=== PATIENT | male | born 1955 | race Caucasian/White ===

== ENCOUNTER → 2017-10-25 | Outpatient (CLI) | payer BC ==
[2017-10-25 09:22] LABS: Anion Gap 11 mmol/L; Blood Urea Nitrogen 16 mg/dL (9-20); Calcium 9.8 mg/dL (8.4-10.2); Carbon Dioxide 27 mmol/L (22-30); Chloride 108 mmol/L (98-107); Cholesterol 202 mg/dL (<200); Glucose 119 mg/dL (74-99); HDL Cholesterol 57 mg/dL (40-60); LDL Cholesterol,Calculated 109 mg/dL (0-99); Potassium 4.6 mmol/L (3.5-5.1); Sodium 146 mmol/L (137-145); Triglycerides 178 mg/dL (<150)
[2017-10-25 09:37] LABS: T4, Free (Free Thyroxine) 0.73 ng/dL (0.78-2.19)
== END ==
LOC: LABWHC1 08:42
PROVIDERS: ATTEND Internal Medicine
DX: E78.5 Hyperlipidemia, unspecified (principal); E03.9 Hypothyroidism, unspecified; E87.8 Other disorders of electrolyte and fluid balance, not elsewhere classified
CPT/HCPCS: 36415; 80048; 80061; 84439; 84443

== ENCOUNTER 2019-02-05 22:18 | Observation (INO) | payer BC, MEDICARE ==
[2019-02-05 22:44] LABS: Glucose,Whole Blood 172 mg/dL (75-99)
[2019-02-05] MEDS ORDERED: SODIUM CHLORIDE 0.9% 500 ML 500 ML IV STA (22:49)
--- NOTE | 2019-02-05 22:58 | ED ---
General Adult HPI - General Chief complaint: Dizziness Stated complaint: Dizziness,vomiting Time Seen by Provider: 02/05/19 22:32 Source: patient, family, RN notes reviewed Mode of arrival: wheelchair Limitations: no limitations - History of Present Illness Initial comments: Chief complaint and history of present illness this is a 63-year-old male was c [facility] emergency room because of severe dizziness. reports she didn't eat or drink much today. He'll increase his physical activity. He went downstairs to watch TV and when he stood up reported became so severely dizzy almost passed out. Report he was breathing heavily reports that his skin color changed, was very diaphoretic. Patient denied headache or chest pain or palpitations. H e was nauseated and vomited. This all occurred the past hour. Though he is feeling better reports his color is still poor she reported taking his blood pressure at home and was 120/68 and this was repeated twice. She's not sure if she did right orbital monitor was correct. - Related Data Home Medications Medication Instructions Recorded Confirmed Magnesium(Unknown Dose) 1 tab PO HS 05/09/15 02/05/19 Melatonin(Unknowndose) 1 tab PO HS 05/09/15 02/05/19 Multivitamin [Men's Multi-Vitamin] 1 tab PO HS 05/09/15 02/05/19 Pravastatin Sodium [Pravachol] 80 mg PO HS 05/09/15 02/05/19 Ketoprofen 12.5mg 1 cap PO DAILY PRN 02/05/19 02/05/19 Levothyroxine Sodium [Synthroid] 88 mcg PO DAILY 02/05/19 02/05/19 Ubidecarenone [Co Q-10] 100 mg PO HS 02/05/19 02/05/19 Allergies Allergy/AdvReac Type Severity Reaction Status Date / Time No Known Allergies Allergy Verified 02/05/19 23:02 Review of Systems ROS Statement: Those systems with pertinent positive or pertinent negative responses have been documented in the HPI. Review of systems; patient denies any headache he reports he did lose his vision for short while felt as though he was going to pass out but he did not fall. [place] very dizzy at the time. Is a little ambulate with assistance of his . Vital signs find temperature 97.4 pulse 79 respiratory rate 18 pulse ox 95% room air blood pressure 138/82 all systems are reviewed. Past medical problems significant for hyperlipidemia, liver disease, probably A per . Varicose veins. Surgeries include tonsillectomy and a colonoscopy for polyps. Family history noncontributory. Patient nonsmoker nondrinker. Denies ALLERGIES. ROS Other: All systems not noted in ROS Statement are negative. Past Medical History Past Medical History: Hyperlipidemia, Liver Disease, Thyroid Disorder Additional Past Medical History / Comment(s): Hepatitis, not sure what type. V aricose veins. History of Any Multi-Drug Resistant Organisms: None Reported Past Surgical History: Tonsillectomy Additional Past Surgical History / Comment(s): Colonoscopy for polyps and R arm hematoma, Past Anesthesia/Blood Transfusion Reactions: No Reported Reaction Past Psychological History: No Psychological Hx Reported Smoking Status: Never smoker Past Alcohol Use History: None Reported Past Drug Use History: None Reported - Past Family History Mother Family Medical History: No Reported History General Exam - General Exam Comments Initial Comments: General: The patient is awake, complains of feeling tired and weak, this came on acutely the past hour. Very dizzy initially, diaphoretic per . Nauseated and vomited once. Denying headache, no chest pain, no palpitations. Eye: Pupils are equal, round and reactive to light, extra-ocular movements are intact; there is normal conjunctiva bilaterally. No signs of icterus. Ears, nose, mouth and throat: There are moist mucous membranes and no oral lesions. Neck: The neck is supple, there is no tenderness, no carotid bruit. Cardiovascular: There is a regular rate and rhythm. No murmur, rub or gallop is appreciated. Respiratory: Lungs are clear to auscultation, respirations are non-labored, breath sounds are equal. No wheezes, stridor, rales, or rhonchi. Gastrointestinal: Soft, non-distended, non-tender abdomen without masses or organomegaly noted. There is no rebound or guarding present. No CVA tenderness. Bowel sounds are unremarkable. Patient was nauseated and vomited once prior to coming emergency room. Back: Denies back pain Musculoskeletal: Normal ROM, no tenderness, There is no pedal edema. There is no calf tenderness or swelling. Sensation intact. Neurological: CN II-XII intact, There are no obvious motor or sensory deficits. Coordination appears grossly intact. Speech is normal. No focal or lateralizing findings. Patient complains of being family dizzy at the time. Acute onset of weakness and near syncope. Skin: reports he still appears pale as compared to his normal color. Psychiatric: Cooperative, Limitations: no limitations Course Vital Signs 02/05/19 02/05/19 22:24 23:29 Temperature 97.4 F L Pulse Rate 79 Pulse Rate [ 77 Left Sitting] Pulse Rate [ 86 Left Standing] Pulse Rate [ 74 Left Supine] Respiratory 18 18 Rate Blood Pressure 138/82 Blood Pressure 128/90 [Left Arm Sitting] Blood Pressure 133/90 [Left Arm Standing] Blood Pressure 122/76 [Left Arm Supine] O2 Sat by Pulse 95 96 Oximetry EKG Findings - EKG Comments: EKG Findings:: EKG was done and reviewed at 2239 showing normal sinus rhythm with right bundle branch block ventricular rate 74 IA interval is 198 QRS 162 QT [address] Garcia Medical Decision Making - Medical Decision Making Rectal decision making; this is a 63-year-old male here with family. The patient had a dizzy episode one going from sitting to standing position. He felt as though he almost was going to black out. reports that he was ashen in color and diaphoretic. Patient was nauseated and vomited once. Not complaining of any chest pain palpitations or headache. Labs show white count of 9 hemoglobin 14 hematocrit of 43 with a potassium 3.8. BUN 20 creatinine 1.02 with a GFR 77. Glucose is 166. Troponin 0.0-8 CT of the brain was performed reviewed by radiologist his final impression is no evidence of acute intracranial abnormality. Multiple small gas lucencies in the neck soft tissues bilaterally which are nonspecific and may be related to venous reflux of air during IV access. Clinical correlation is recommended. Dr. Arguello Examination of the neck does not show any evidence clinically of any subcu case emphysema. Auscultation does not elicit any evidence of subcu emphysema. Interesting to note the patient did vomit 5 times just prior to coming emergency room. Awaiting interpretation of the chest x-ray. Radiologist report and impression; no evidence of acute cardiopulmonary disease as read by Dr. Arguello. The patient will be admitted for near syncopal episode. His orthostatics are within normal limits. Patient complains of being mildly dizzy. He'll be given Antivert while in hospital. Case was discussed with the patient's attending. Plans for the patient to be admitted for observation for the evening with repeat troponin levels performed. Patient never had chest pain but he was dizzy, diaphoretic. We did discuss possibility of cardiac arrhythmia causing his symptoms as well. All questions w ere answered - Lab Data Result diagrams: 02/05/19 22:47 02/05/19 22:47 Lab Results 02/05/19 02/05/19 02/05/19 Range/Units 22:43 22:47 22:47 WBC 9.1 (3.8-10.6) k/uL RBC 4.61 (4.30-5.90) m/uL Hgb 14.4 (13.0-17.5) gm/dL Hct 43.1 (39.0-53.0) % MCV 93.6 (80.0-100.0) fL MCH 31.2 (25.0-35.0) pg MCHC 33.3 (31.0-37.0) g/dL RDW 12.8 (11.5-15.5) % Plt Count 209 (150-450) k/uL Neutrophils % 64 % Lymphocytes % 29 % Monocytes % 5 % Eosinophils % 1 % Basophils % 1 % Neutrophils # 5.8 (1.3-7.7) k/uL Lymphocytes # 2.6 (1.0-4.8) k/uL Monocytes # 0.4 (0-1.0) k/uL Eosinophils # 0.1 (0-0.7) k/uL Basophils # 0.1 (0-0.2) k/uL PT (9.0-12.0) sec INR (<1.2) Sodium 141 (137-145) mmol/L Potassium 3.8 (3.5-5.1) mmol/L Chloride 105 (98-107) mmol/L Carbon Dioxide 24 (22-30) mmol/L Anion Gap 12 mmol/L BUN 20 (9-20) mg/dL Creatinine 1.02 (0.66-1.25) mg/dL Est GFR (CKD-EPI)AfAm 89 (>60 ml/min/1.73 sqM) Est GFR (CKD-EPI)NonAf 77 (>60 ml/min/1.73 sqM) Glucose 166 H (74-99) mg/dL POC Glucose (mg/dL) 172 H (75-99) mg/dL POC Glu Assurance Senior Manager ID Janet Santana Plasma Lactic Acid Sherman (0.7-2.0) mmol/L Calcium 9.7 (8.4-10.2) mg/dL Total Bilirubin 0.6 (0.2-1.3) mg/dL AST 55 (17-59) U/L ALT 43 (21-72) U/L Alkaline Phosphatase 75 (38-126) U/L Troponin I (0.000-0.034) ng/mL Total Protein 7.2 (6.3-8.2) g/dL Albumin 4.5 (3.5-5.0) g/dL 02/05/19 02/05/19 02/05/19 Range/Units 22:47 22:47 22:47 WBC (3.8-10.6) k/uL RBC (4.30-5.90) m/uL Hgb (13.0-17.5) gm/dL Hct (39.0-53.0) % MCV (80.0-100.0) fL MCH (25.0-35.0) pg MCHC (31.0-37.0) g/dL RDW (11.5-15.5) % Plt Count (150-450) k/uL Neutrophils % % Lymphocytes % % Monocytes % % Eosinophils % % Basophils % % Neutrophils # (1.3-7.7) k/uL Lymphocytes # (1.0-4.8) k/uL Monocytes # (0-1.0) k/uL Eosinophils # (0-0.7) k/uL Basophils # (0-0.2) k/uL PT 10.5 (9.0-12.0) sec INR 1.0 (<1.2) Sodium (137-145) mmol/L Potassium (3.5-5.1) mmol/L Chloride (98-107) mmol/L Carbon Dioxide (22-30) mmol/L Anion Gap mmol/L BUN (9-20) mg/dL Creatinine (0.66-1.25) mg/dL Est GFR (CKD-EPI)AfAm (>60 ml/min/1.73 sqM) Est GFR (CKD-EPI)NonAf (>60 ml/min/1.73 sqM) Glucose (74-99) mg/dL POC Glucose (mg/dL) (75-99) mg/dL POC Glu Assurance Senior Manager ID Plasma Lactic Acid Sherman 1.4 (0.7-2.0) mmol/L Calcium (8.4-10.2) mg/dL Total Bilirubin (0.2-1.3) mg/dL AST (17-59) U/L ALT (21-72) U/L Alkaline Phosphatase (38-126) U/L Troponin I 0.028 (0.000-0.034) ng/mL Total Protein (6.3-8.2) g/dL Albumin (3.5-5.0) g/dL Disposition Clinical Impression: Postural dizziness with near syncope Disposition: ADMITTED IP TO THIS HOSP Condition: Fair Referrals: Yasmany Muniz MD [Primary Care Provider] - 1-2 days
[2019-02-05 23:25] LABS: Basophils # (A) 0.1 k/uL (0-0.2); Basophils % (A) 1 %; Eosinophils # (A) 0.1 k/uL (0-0.7); Eosinophils % (A) 1 %; HCT 43.1 % (39.0-53.0); HGB 14.4 gm/dL (13.0-17.5); Lymphocytes # (A) 2.6 k/uL (1.0-4.8); Lymphocytes % (A) 29 %; MCH 31.2 pg (25.0-35.0); MCHC 33.3 g/dL (31.0-37.0); MCV 93.6 fL (80.0-100.0); Monocytes # (A) 0.4 k/uL (0-1.0); Monocytes % (A) 5 %; Neutrophils # (A) 5.8 k/uL (1.3-7.7); Neutrophils % (A) 64 %; Platelet Count 209 k/uL (150-450); RBC 4.61 m/uL (4.30-5.90); RDW 12.8 % (11.5-15.5); WBC 9.1 k/uL (3.8-10.6)
[2019-02-05 23:45] LABS: Albumin 4.5 g/dL (3.5-5.0); Calcium 9.7 mg/dL (8.4-10.2); Potassium 3.8 mmol/L (3.5-5.1); Total Bilirubin 0.6 mg/dL (0.2-1.3); Total Protein 7.2 g/dL (6.3-8.2)
[2019-02-05 23:50] LABS: Prothrombin Time 10.5 sec (9.0-12.0)
--- NOTE | 2019-02-06 00:02 | CT ---
EXAM: CT Head Without Intravenous Contrast CLINICAL HISTORY: ITS.REASON CT Reason: Acute severe dizziness TECHNIQUE: Axial computed tomography images of the head/brain without intravenous contrast. CTDI is 49.3 mGy and DLP is 1091.4 mGy-cm. This CT exam was performed using one or more of the following dose reduction techniques: automated exposure control, adjustment of the mA and/or kV according to patient size, and/or use of iterative reconstruction technique. COMPARISON: None available FINDINGS: Brain: No evidence of acute transcortical cerebral infarction or intracranial hemorrhage. No abnormal mass effect or midline shift. No abnormal extra-axial collections. Mild cerebral atrophy. Ventricles: Ventricles are unremarkable. Bones/joints: No skull fracture identified. Soft tissues: Multiple small gas lucencies in the neck soft tissues bilaterally. Sinuses: Imaged paranasal sinuses are clear except for small left sphenoid mucous retention cyst. Mastoid air cells: Mastoid sinuses are clear. IMPRESSION: No evidence of acute intracranial abnormality. Multiple small gas lucencies in the neck soft tissues bilaterally which are nonspecific and may be related to venous reflux of air during IV access. Clinical correlation is recommended. <MYCVCSECTION> Critical Value Communications 02/06/19 00:09 Verify Receipt Verified receipt with BRITT Ovalle in ER for IRIS Monet on 02/06 00:09 (-04:00)
--- NOTE | 2019-02-06 00:23 | XR ---
EXAM: XR Chest, 2 Views CLINICAL HISTORY: ITS.REASON XR Reason: Short of breath TECHNIQUE: Frontal and lateral views of the chest. COMPARISON: Chest x-ray 09/28/2015 FINDINGS: Lungs: No focal pulmonary infiltrates or consolidations. Mild basilar subsegmental atelectasis. Pleural space: No evidence of pleural effusion or pneumothorax. Heart: Heart size upper limits of normal. Mediastinum: Mediastinal structures are unremarkable. Bones/joints: Mild degenerative changes involve mid and lower thoracic spine. IMPRESSION: No evidence of acute cardiopulmonary disease.
[2019-02-06] MEDS ORDERED: MECLIZINE 12.5 MG TAB PO STA (00:44)
[2019-02-06] MEDS ORDERED: NALOXONE 0.4 MG/ML 1 ML VIAL IV PRN (00:51)
[2019-02-06] MEDS ORDERED: IBUPROFEN 400 MG TAB PO PRN (00:51)
[2019-02-06] MEDS ORDERED: SODIUM CHLORIDE 0.9% 1,000 ML IV SCH (01:00)
[2019-02-06] MEDS ORDERED: LEVOTHYROXINE 88 MCG TAB PO SCH (06:30)
[2019-02-06 07:33] VITALS: RESP 16; TEMP 97.7
[2019-02-06] MEDS ORDERED: FAMOTIDINE 20 MG TAB PO SCH (09:00)
[2019-02-06 09:12] VITALS: PULSE 68
[2019-02-06 10:14] VITALS: BP 116/74
--- NOTE | 2019-02-06 10:37 | P.HPIM ---
History of Present Illness Chief complaint Weakness and syncope History of present illness The patient is a 63-year-old gentleman who had been working extremely hard yesterday throughout the day without drinking much or eating much fluids. He became tired but did get some pizza and was sitting in his basement when he suddenly got up and felt very weak. He had a hard time walking. He almost passed out and became very lightheaded. No definite vertigo. He was very nauseated. He denied any headaches or focal weakness. No His gave him something to drink that also had some sugars. The patient became very nauseated and was brought to the emergency room by his . Past medical history Hyperlipidemia Hypothyroidism Colonic polyps Overweight Right wrist tendinitis History of venous insufficiency and varicose veins. Some history of hepatitis in the past but unsure type. Occurred many years ago. No known ALLERGIES Home medications Coenzyme Q 10, 100 mg at at bedtime Pravachol 80 mg at at bedtime Multiple vitamin daily Melatonin 3 mg at night for sleep Magnesium 1 at at bedtime Levothyroxine 88 g daily Ketoprofen 12.5 daily when necessary for musculoskeletal pain. Previous surgeries include a tonsillectomy. Review of systems No history of headache or double vision but he did experience some blurred vision initially. No fever or chills or cough. Patient did have profuse sweating during the episode initially. Patient did not have any chest pain or abdominal pain but did have nausea and vomiting at the emergency room. No urinary or bowel symptomatology. Social history Patient is a retired teacher. He lives locally in the area with his . No history of excessive alcohol usage. He is a former smoker. Family history Positive for heart disease and diabetes. Vital signs presently show a temperature 97.7 with a pulse of 68 respirations 16. Blood pressure 119/78 and he is 97% saturated on room air. He is alert and oriented. Pleasant. Head and neck is atraumatic. He does have a dark keratosis on the forehead. Extraocular movements are intact. Neck is not stiff. No carotid bruits. No thyromegaly. Lungs are clear to auscultation. Heart tones are regular without murmurs. Abdomen is soft and nontender without rebound, guarding or masses detected. Rectal and genital exam deferred. No unusual edema. No neurological deficits. Cranial nerves are intact. No focal weakness. He is alert and oriented. There is no hand drifting. He has been up ambulatory without difficulties. Laboratory White count is 9.1 with a hemoglobin 14.4 and a platelet count of 209. INR was 1.0 Electrolytes were normal. BUN of 20 with creatinine 1.02 given him a GFR of 77 Blood sugar 166 Lactic acid 1.4 Her calcium was normal. Albumin 4.5. Liver function tests unremarkable. Initial troponin was 0.028 and second repeat value of 0.022 EKG showed a normal sinus rhythm with a right bundle aarti block picture but no acute ischemic changes. Chest x-ray showed no evidence of acute cardiopulmonary disease. Brain CAT scan showed no evidence of acute intracranial abnormality. Impressions 1. Patient with syncopal type episode associated with postural hypotension initially and likely aggravated by initial hypoglycemia and vasovagal response with nausea and vomiting. No evidence for cardiac ischemic disease at this time or cardiac arrhythmia. 2. Past medical history as stated above with treated hyperlipidemia and hypoth yroidism 3. History of colonic polyps 4. Venous insufficiency and varicose veins 5. Right wrist tendinitis Plans Patient has been monitored. Repeat troponins. IV fluids. Further recommendations pending clinical response and results of above. Past Medical History Past Medical History: Hyperlipidemia, Liver Disease, Thyroid Disorder Additional Past Medical History / Comment(s): Hepatitis, not sure what type. Varicose veins. History of Any Multi-Drug Resistant Organisms: None Reported Past Surgical History: Tonsillectomy Additional Past Surgical History / Comment(s): Colonoscopy for polyps and R arm hematoma, Past Anesthesia/Blood Transfusion Reactions: No Reported Reaction Smoking Status: Never smoker - Past Family History Father Family Medical History: Dementia Additional Family Medical History / Comment(s): Heart Disease, Triple Bypass Mother Family Medical History: Diabetes Mellitus Medications and Allergies Home Medications Medication Instructions Recorded Confirmed Type Magnesium(Unknown Dose) 1 tab PO HS 05/09/15 02/06/19 History Melatonin(Unknowndose) 3 tab PO HS 05/09/15 02/06/19 History Multivitamin [Men's Multi-Vitamin] 1 tab PO HS 05/09/15 02/06/19 History Pravastatin Sodium [Pravachol] 80 mg PO HS 05/09/15 02/06/19 History Ketoprofen 12.5mg 1 cap PO DAILY PRN 02/05/19 02/06/19 History Levothyroxine Sodium [Synthroid] 88 mcg PO DAILY 02/05/19 02/06/19 History Ubidecarenone [Co Q-10] 100 mg PO HS 02/05/19 02/06/19 History Allergies Allergy/AdvReac Type Severity Reaction Status Date / Time No Known Allergies Allergy Verified 02/06/19 01:48 Physical Exam Vitals: Vital Signs Temp Pulse Pulse Pulse Pulse Pulse Resp 02/06/19 08:00 68 16 02/06/19 07:32 97.7 F 59 L 16 02/06/19 03:32 18 02/06/19 02:20 18 02/06/19 02:00 97.4 F L 73 18 02/06/19 01:36 97.5 F L 74 18 02/05/19 23:29 77 86 74 18 02/05/19 22:24 97.4 F L 79 18 BP BP BP BP BP Pulse Ox 02/06/19 08:00 119/78 130/78 116/74 97 02/06/19 07:32 113/73 97 02/06/19 03:32 02/06/19 02:20 02/06/19 02:00 115/74 96 02/06/19 01:36 117/77 93 L 02/05/19 23:29 128/90 133/90 122/76 96 02/05/19 22:24 138/82 95 Intake and Output 02/05/19 02/06/19 02/06/19 22:59 06:59 14:59 Other: Voiding Method Toilet # Voids 1 Weight 89.811 kg Results CBC & Chem 7: 02/05/19 22:47 02/05/19 22:47 Labs: Abnormal Lab Results - Last 24 Hours (Table) 02/05/19 02/05/19 Range/Units 22:43 22:47 Glucose 166 H (74-99) mg/dL POC Glucose (mg/dL) 172 H (75-99) mg/dL Thrombosis Risk Factor Assmnt - Choose All That Apply Each Risk Factor Represents 2 Points: Age 61-74 years Thrombosis Risk Factor Assessment Total Risk Factor Score: 2 Thrombosis Risk Factor Assessment Level: Low Risk
--- NOTE | 2019-02-06 10:42 | P.DS ---
Providers Date of admission: 02/06/19 00:55 Attending physician: Yasmany Muniz Primary care physician: Yasmany Muniz The patient is a 63-year-old gentleman who presented with a syncopal type episode. Please refer to history and physical. Patient did not have any chest pain associated with this. No focal neurological symptoms. The patient was monitored and hydrated. Repeat troponin values were evaluated and were unremarkable. Patient has been able to ambulate and will take nourishment prior to discharge today. Vital signs are good. Lung and heart examination is clear and regular. No neurological deficits. Anticipate discharge this morning. He will continue his home medications that include Pravachol 80 mg daily Levothyroxine 88 g daily Ketoprofen 12.5 daily as needed for musculoskeletal pain Patient also takes coenzyme Q at bedtime, multiple vitamin, magnesium and may continue those. Patient was instructed not to work too hard with out rest. and without taking fluids and nourishment throughout the day. He will follow-up in the office next week. He may call or return to emergency room for any acute development. Discharge diagnoses Syncopal episode related to hypoglycemia and postural hypotension. Also associated with vasovagal response with nausea and vomiting likely. Past medical history of hypothyroidism and hyperlipidemia. Acute right wrist tendinitis for which she is using a brace Colonic polyps Venous insufficiency and varicose veins Apparent remote history of hepatitis Patient Condition at Discharge: Fair Plan - Discharge Summary New Discharge Prescriptions: No Action Pravastatin Sodium [Pravachol] 80 mg PO HS Multivitamin [Men's Multi-Vitamin] 1 tab PO HS Melatonin(Unknowndose) 3 tab PO HS Magnesium(Unknown Dose) 1 tab PO HS Ubidecarenone [Co Q-10] 100 mg PO HS Levothyroxine Sodium [Synthroid] 88 mcg PO DAILY Ketoprofen 12.5mg 1 cap PO DAILY PRN PRN Reason: Pain Discharge Medication List Magnesium(Unknown Dose) 1 tab PO HS 05/09/15 [History] Melatonin(Unknowndose) 3 tab PO HS 05/09/15 [History] Multivitamin [Men's Multi-Vitamin] 1 tab PO HS 05/09/15 [History] Pravastatin Sodium [Pravachol] 80 mg PO HS 05/09/15 [History] Ketoprofen 12.5mg 1 cap PO DAILY PRN 02/05/19 [History] Levothyroxine Sodium [Synthroid] 88 mcg PO DAILY 02/05/19 [History] Ubidecarenone [Co Q-10] 100 mg PO HS 02/05/19 [History] Follow up Appointment(s)/Referral(s): Yasmany Muniz MD [Primary Care Provider] - 1-2 days (office is closed,please call for followup appointment) Patient Instructions/Handouts: Heat Exhaustion (ED), Syncope (DC), Hypotension (ED), Lightheadedness (ED) Activity/Diet/Wound Care/Special Instructions: rest and take it easy until seen by Dr. Muniz encourage fluids and food intake
[2019-02-06] MEDS ORDERED: PRAVASTATIN SODIUM 80 MG TAB PO SCH (21:00)
== END 2019-02-06 12:08 | disposition home or self-care (01) ==
LOC: EC 22:18 → 1SOBS 02-06 00:55
PROVIDERS: ADMIT Internal Medicine; ATTEND Internal Medicine
DX: I95.1 Orthostatic hypotension (principal); E16.2 Hypoglycemia, unspecified; E78.5 Hyperlipidemia, unspecified; I83.90 Asymptomatic varicose veins of unspecified lower extremity; K75.9 Inflammatory liver disease, unspecified; R53.1 Weakness; E03.9 Hypothyroidism, unspecified; M77.9 Enthesopathy, unspecified; I87.2 Venous insufficiency (chronic) (peripheral); E66.3 Overweight; Z68.32 Body mass index [BMI] 32.0-32.9, adult; Z79.1 Long term (current) use of non-steroidal anti-inflammatories (NSAID); Z79.890 Hormone replacement therapy; Z79.899 Other long term (current) drug therapy; Z86.010 Personal history of colon polyps; Z87.891 Personal history of nicotine dependence; Z83.3 Family history of diabetes mellitus; Z82.49 Family history of ischemic heart disease and other diseases of the circulatory system; Z81.8 Family history of other mental and behavioral disorders
CPT/HCPCS: 96360; 99285; 36415; 93005; 80053; 83605; 84484 ×2; 85025; 85610; 71046; 70450; G0378

== ENCOUNTER → 2019-02-09 | Outpatient (CLI) | payer MEDICARE ==
--- NOTE | 2019-02-09 14:18 | US ---
EXAMINATION TYPE: US venous doppler duplex LE LT DATE OF EXAM: 02/09/2019 1:31 PM COMPARISON: NONE CLINICAL HISTORY: pain and swelling left lower limb R22.42. Left leg pain SIDE PERFORMED: Left TECHNIQUE: The lower extremity deep venous system is examined utilizing real time linear array sonog matthew with graded compression, doppler sonography and color-flow sonography. VESSELS IMAGED: External Iliac Vein (EIV) Common Femoral Vein Deep Femoral Vein Greater Saphenous Vein * Femoral Vein Popliteal Vein Small Saphenous Vein * Proximal Calf Veins (* superficial vessels) There is normal flow, compressibility, vascular waveforms. Left Leg: Appears negative for DVT Scanned left medial thigh at patient's area of concern: thrombus seen within superficial vessels at this level, tortuous varicosities show abnormal intraluminal echoes and are noncompressible IMPRESSION: No evident deep venous thrombosis at or above the left knee. Superficial venous thrombosi s noted in the medial left thigh area of clinical concern
== END | disposition home or self-care (01) ==
LOC: RADUSWWP 12:41
PROVIDERS: ATTEND Internal Medicine
DX: I82.812 Embolism and thrombosis of superficial veins of left lower extremity (principal)

== ENCOUNTER 2020-03-24 12:30 | Emergency (ER) | payer MEDICARE ==
[2020-03-24] MEDS ORDERED: SODIUM CHLORIDE 0.9% 500 ML 500 ML IV STA (12:53)
[2020-03-24 13:57] LABS: Basophils % (A) 1 %; Eosinophils # (A) 0.1 k/uL (0-0.7); Eosinophils % (A) 1 %; HGB 14.7 gm/dL (13.0-17.5); Lymphocytes # (A) 2.2 k/uL (1.0-4.8); Lymphocytes % (A) 30 %; MCH 32.2 pg (25.0-35.0); MCHC 33.4 g/dL (31.0-37.0); MCV 96.4 fL (80.0-100.0); Mean Platelet Volume 8.3; Monocytes # (A) 0.7 k/uL (0-1.0); Monocytes % (A) 9 %; Neutrophils # (A) 4.3 k/uL (1.3-7.7); Neutrophils % (A) 58 %; Platelet Count 235 k/uL (150-450); RBC 4.56 m/uL (4.30-5.90); RDW 12.9 % (11.5-15.5); WBC 7.4 k/uL (3.8-10.6)
[2020-03-24 14:05] LABS: Partial Thromboplastin Time 24.5 sec (22.0-30.0)
[2020-03-24 14:11] LABS: ALT 31 U/L (4-49); AST 27 U/L (17-59); African American GFR (CKD) >90 (>60 ml/min/1.73 sqM); Albumin 4.4 g/dL (3.5-5.0); Alkaline Phosphatase 82 U/L (38-126); Anion Gap 8 mmol/L; Blood Urea Nitrogen 16 mg/dL (9-20); Calcium 9.3 mg/dL (8.4-10.2); Carbon Dioxide 22 mmol/L (22-30); Chloride 109 mmol/L (98-107); Glucose 103 mg/dL (74-99); Non-African American GFR(CKD) 89 (>60 ml/min/1.73 sqM); Potassium 4.4 mmol/L (3.5-5.1); Sodium 139 mmol/L (137-145); Total Bilirubin 0.5 mg/dL (0.2-1.3)
--- NOTE | 2020-03-24 14:11 | ED ---
General Adult HPI - General Chief complaint: Syncope Stated complaint: Syncope, side pain Time Seen by Provider: 03/24/20 12:40 Source: patient, RN notes reviewed, old records reviewed Mode of arrival: ambulatory Limitations: no limitations - History of Present Illness Initial comments: 64.-year-old male presenting for evaluation of syncopal episode which occurred yesterday afternoon. Patient states he had been working outside have breakfast but did not eat much throughout the day he was in his home, passed out possibly hitting his head. He was confused and unconscious for several minutes according to his . He denies any preceding chest pain or palpitations. He believes he had injured the left side of his chest and has some neck pain as well as a mild headache from the fall. He states a similar episode this proximally one year ago which was related to dehydration and heat stroke. He denies fever. Denies vomiting. He has been eating and drinking well today. He has no new complaints at the time my evaluation which was approximately 24 hours after the event. - Related Data Home Medications Medication Instructions Recorded Confirmed Magnesium(Unknown Dose) 1 tab PO HS 05/09/15 02/06/19 Melatonin(Unknowndose) 3 tab PO HS 05/09/15 02/06/19 Multivitamin [Men's Multi-Vitamin] 1 tab PO HS 05/09/15 02/06/19 Pravastatin Sodium [Pravachol] 80 mg PO HS 05/09/15 02/06/19 Ketoprofen 12.5mg 1 cap PO DAILY PRN 02/05/19 02/06/19 Levothyroxine Sodium [Synthroid] 88 mcg PO DAILY 02/05/19 02/06/19 Ubidecarenone [Co Q-10] 100 mg PO HS 02/05/19 02/06/19 Allergies Allergy/AdvReac Type Severity Reaction Status Date / Time No Known Allergies Allergy Verified 03/24/20 12:38 Review of Systems ROS Statement: Those systems with pertinent positive or pertinent negative responses have been documented in the HPI. ROS Other: All systems not noted in ROS Statement are negative. Past Medical History Past Medical History: Hyperlipidemia, Liver Disease, Thyroid Disorder Additional Past Medical History / Comment(s): Hepatitis, not sure what type. Varicose veins. History of Any Multi-Drug Resistant Organisms: None Reported Past Surgical History: Tonsillectomy Additional Past Surgical History / Comment(s): Colonoscopy for polyps and R arm hematoma, Past Anesthesia/Blood Transfusion Reactions: No Reported Reaction Past Psychological History: No Psychological Hx Reported Past Alcohol Use History: None Reported Past Drug Use History: None Reported - Past Family History Father Family Medical History: Dementia Additional Family Medical History / Comment(s): Heart Disease, Triple Bypass Mother Family Medical History: Diabetes Mellitus General Exam Limitations: no limitations General appearance: alert, in no apparent distress Head exam: Present: atraumatic, normocephalic Eye exam: Present: normal appearance, PERRL ENT exam: Present: mucous membranes dry Neck exam: Present: normal inspection. Absent: tenderness, meningismus Respiratory exam: Present: normal lung sounds bilaterally, chest wall tenderness. Absent: respiratory distress, wheezes Cardiovascular Exam: Present: regular rate, normal rhythm GI/Abdominal exam: Present: soft. Absent: distended, tenderness, guarding Extremities exam: Present: normal inspection, normal capillary refill. Absent: pedal edema Neurological exam: Present: alert, oriented X3, CN II-XII intact. Absent: motor sensory deficit Psychiatric exam: Present: normal affect, normal mood Skin exam: Present: warm, dry, intact. Absent: cyanosis, diaphoretic Course Vital Signs 03/24/20 03/24/20 03/24/20 12:32 13:38 14:25 Temperature 98.2 F Pulse Rate 93 81 79 Respiratory 18 16 12 Rate Blood Pressure 137/87 114/81 115/79 O2 Sat by Pulse 97 92 L 96 Oximetry Medical Decision Making - Medical Decision Making 64-year-old male with syncopal episode which occurred yesterday. This was after a local. A fasting, minimal oral hydration and working outside. I suspect this was related to dehydration and heat. His workup in the emergency department reveals EKG which is sinus rhythm with a right bundle branch which is unchanged from prior. He has a normal CBC, normal CMP, negative troponin. Chest x-ray performed which is negative for acute osseous abdomen belly, no acute cardiopulmonary abnormality. CT performed negative for intracranial hemorrhage or mass effect, CT cervical spine negative for fracture subluxation. Patient is feeling well. We did discuss the possibility of admission for telemetry and hydration versus home with outpatient follow-up. Patient is agreeable with outpatient follow-up will drink plenty fluids. He will return the emergency department with worsening or changing symptoms. - Lab Data Result diagrams: 03/24/20 13:35 03/24/20 13:35 Lab Results 03/24/20 03/24/20 03/24/20 Range/Units 13:35 13:35 13:35 WBC 7.4 (3.8-10.6) k/uL RBC 4.56 (4.30-5.90) m/uL Hgb 14.7 (13.0-17.5) gm/dL Hct 44.0 (39.0-53.0) % MCV 96.4 (80.0-100.0) fL MCH 32.2 (25.0-35.0) pg MCHC 33.4 (31.0-37.0) g/dL RDW 12.9 (11.5-15.5) % Plt Count 235 (150-450) k/uL Neutrophils % 58 % Lymphocytes % 30 % Monocytes % 9 % Eosinophils % 1 % Basophils % 1 % Neutrophils # 4.3 (1.3-7.7) k/uL Lymphocytes # 2.2 (1.0-4.8) k/uL Monocytes # 0.7 (0-1.0) k/uL Eosinophils # 0.1 (0-0.7) k/uL Basophils # 0.0 (0-0.2) k/uL PT 10.0 (9.0-12.0) sec INR 1.0 (<1.2) APTT 24.5 (22.0-30.0) sec Sodium 139 (137-145) mmol/L Potassium 4.4 (3.5-5.1) mmol/L Chloride 109 H (98-107) mmol/L Carbon Dioxide 22 (22-30) mmol/L Anion Gap 8 mmol/L BUN 16 (9-20) mg/dL Creatinine 0.90 (0.66-1.25) mg/dL Est GFR (CKD-EPI)AfAm >90 (>60 ml/min/1.73 sqM) Est GFR (CKD-EPI)NonAf 89 (>60 ml/min/1.73 sqM) Glucose 103 H (74-99) mg/dL Calcium 9.3 (8.4-10.2) mg/dL Total Bilirubin 0.5 (0.2-1.3) mg/dL AST 27 (17-59) U/L ALT 31 (4-49) U/L Alkaline Phosphatase 82 (38-126) U/L Troponin I (0.000-0.034) ng/mL Total Protein 7.0 (6.3-8.2) g/dL Albumin 4.4 (3.5-5.0) g/dL 03/24/20 Range/Units 13:35 WBC (3.8-10.6) k/uL RBC (4.30-5.90) m/uL Hgb (13.0-17.5) gm/dL Hct (39.0-53.0) % MCV (80.0-100.0) fL MCH (25.0-35.0) pg MCHC (31.0-37.0) g/dL RDW (11.5-15.5) % Plt Count (150-450) k/uL Neutrophils % % Lymphocytes % % Monocytes % % Eosinophils % % Basophils % % Neutrophils # (1.3-7.7) k/uL Lymphocytes # (1.0-4.8) k/uL Monocytes # (0-1.0) k/uL Eosinophils # (0-0.7) k/uL Basophils # (0-0.2) k/uL PT (9.0-12.0) sec INR (<1.2) APTT (22.0-30.0) sec Sodium (137-145) mmol/L Potassium (3.5-5.1) mmol/L Chloride (98-107) mmol/L Carbon Dioxide (22-30) mmol/L Anion Gap mmol/L BUN (9-20) mg/dL Creatinine (0.66-1.25) mg/dL Est GFR (CKD-EPI)AfAm (>60 ml/min/1.73 sqM) Est GFR (CKD-EPI)NonAf (>60 ml/min/1.73 sqM) Glucose (74-99) mg/dL Calcium (8.4-10.2) mg/dL Total Bilirubin (0.2-1.3) mg/dL AST (17-59) U/L ALT (4-49) U/L Alkaline Phosphatase (38-126) U/L Troponin I <0.012 (0.000-0.034) ng/mL Total Protein (6.3-8.2) g/dL Albumin (3.5-5.0) g/dL Disposition Clinical Impression: Dehydration, Syncope due to orthostatic hypotension Disposition: HOME SELF-CARE Condition: Good Instructions (If sedation given, give patient instructions): Dehydration (ED), Syncope (ED) Is patient prescribed a controlled substance at d/c from ED?: No Referrals: Kelley Lyn MD [Primary Care Provider] - 1-2 days Time of Disposition: 15:14
--- NOTE | 2020-03-24 14:27 | CT ---
EXAMINATION TYPE: CT brain cspine wo con DATE OF EXAM: 03/24/2020 COMPARISON: 02/05/2019 HISTORY: Trauma, syncope yesterday CT DLP: 1212.6 mGycm, Automated exposure control for dose reduction was used. CONTRAST: None CT of the brain is performed utilizing 3 mm thick sections through the posterior fossa and 3 mm thick sections through the remaining calvarium. Study is performed within 24 hours of arrival to the hospital. No abnormal hyperdensity is present to suggest an acute intracranial hemorrhage. No mass lesion is evident. No acute infarcts are evident. There is cysts within the choroid plexus, stable. Ventricles and sulci are appropriate for the patient age. Paranasal sinuses and mastoid air cells within the [id number] are clear. IMPRESSIONS: 1. Normal CT brain. CT cervical spine. COMPARISON: None CT of the cervical spine is performed in the axial plane at 2 mm thick sections. Reconstructed image s in the coronal, and sagittal plane are reviewed on the computer. No acute fractures are evident. Vertebral body alignment is normal. Mild degenerative disc changes present C5-6 C6-7. Vertebral body heights are preserved. No spinal canal stenosis is evident. No neural foraminal stenosis is evident. IMPRESSIONS: 1. Mild degenerative disc changes mid to lower cervical spine
--- NOTE | 2020-03-24 15:04 | XR ---
EXAMINATION TYPE: XR chest 2V DATE OF EXAM: 03/24/2020 CLINICAL HISTORY: Syncope TECHNIQUE: Frontal and lateral views of the chest are obtained. COMPARISON: 02/06/2019 chest radiograph FINDINGS: The cardiomediastinal silhouette is within normal limits for size. Pulmonary vasculature i s normal. There is no focal air space opacity, pleural effusion, or pneumothorax seen. The osseous st ructures are intact. IMPRESSION: No acute cardiopulmonary process.
[2020-03-24 15:41] VITALS: BP 130/89; PULSE 78; RESP 16; TEMP 98
== END 2020-03-24 15:40 | disposition home or self-care (01) ==
LOC: EC 12:30
DX: E86.0 Dehydration (principal); I95.1 Orthostatic hypotension; E78.5 Hyperlipidemia, unspecified; E07.9 Disorder of thyroid, unspecified; Z79.890 Hormone replacement therapy
CPT/HCPCS: 36415; 70450; 71046; 72125; 80053; 84484; 85025; 85610; 85730; 93005; 96360; 99285

== ENCOUNTER → 2020-05-04 | Outpatient (CLI) | payer MEDICARE ==
--- NOTE | 2020-05-04 14:34 | US ---
EXAMINATION TYPE: US venous doppler duplex LE LT DATE OF EXAM: 05/04/2020 2:14 PM COMPARISON: NONE CLINICAL HISTORY: R22.42 SWELLING LT LOWER LIMB. Previous left calf varicose vein thrombosis, new ons et of painful, red lower left leg with swelling, no h/o DVT, only SVT SIDE PERFORMED: Left TECHNIQUE: The lower extremity deep venous system is examined utilizing real time linear array sonog matthew with graded compression, doppler sonography and color-flow sonography. VESSELS IMAGED: External Iliac Vein (EIV) Common Femoral Vein Deep Femoral Vein Greater Saphenous Vein * Femoral Vein Popliteal Vein Small Saphenous Vein * Proximal Calf Veins (* superficial vessels) Left Leg: Noncompressible varicose veins seen from distal thigh, and knee, no flow, probable SVT Also noncompressible, no flow seen within peroneal veins in upper calf, lower calf appears wnl IMPRESSION: 1. Noncompressible left peroneal veins compatible some deep venous thrombosis within the calf. 2. Large thrombosed varicosities are within the left posterior popliteal region compatible superficia l thrombus.
== END | disposition home or self-care (01) ==
LOC: RADUSWWP 13:40
PROVIDERS: ATTEND Family Medicine
DX: I83.12 Varicose veins of left lower extremity with inflammation (principal); I87.8 Other specified disorders of veins

== ENCOUNTER → 2020-09-21 | Outpatient (CLI) | payer MEDICARE ==
[2020-09-21 15:28] LABS: HCT 44.8 % (39.6-50.0); HGB 14.7 g/dL (13.0-17.0); MCH 31.3 pg (27.0-32.0); MCHC 32.8 g/dL (32.0-37.0); MCV 95.3 fL (80.0-97.0); Mean Platelet Volume 12.6 fL (9.5-12.2); Platelet Count 204 X 10*3/uL (140-440); RDW 13.3 % (11.5-14.5); WBC 6.75 X 10*3/uL (4.50-10.00)
[2020-09-21 18:36] LABS: African American GFR (CKD) 80.1 (60.0-200.0); Anion Gap 9.5 mmol/L (4.00-12.00); BUN/Creat Ratio 16.36 Ratio (12.00-20.00); Calcium 10.1 mg/dL (8.7-10.3); Carbon Dioxide 23.5 mmol/L (21.6-31.8); Non-African American GFR(CKD) 69.1 (60.0-200.0); Potassium 4.2 mmol/L (3.5-5.5)
== END | disposition home or self-care (01) ==
LOC: LABWHC1 08:56
PROVIDERS: ATTEND Internal Medicine Cardiovascular Disease
DX: I44.1 Atrioventricular block, second degree (principal)
CPT/HCPCS: 36415; 80048; 84443; 85027

== ENCOUNTER 2020-09-22 05:53 | Day surgery (SDC) | payer MEDICARE ==
[2020-09-21 14:12] VITALS: BMI 33.3
[2020-09-22] MEDS ORDERED: SODIUM CHLORIDE 0.9% 100 ML IV ONE (06:12)
[2020-09-22] MEDS ORDERED: ceFAZolin 1 GM in SODIUM CHLORIDE 0.9% 250 ML IRRIGATION PRN (07:00)
[2020-09-22] MEDS ORDERED: HEPARIN SODIUM 1,000 UN/ML (10ML VL) ONE (07:44)
[2020-09-22] MEDS ORDERED: fentaNYL (PF) 50 MCG/ML 2 ML AMP ONE (07:45)
[2020-09-22] MEDS ORDERED: LIDOCAINE 1% INJ 10MG/ML (20 ML MDV) ONE ×2 (07:49)
[2020-09-22] MEDS ORDERED: IV FLUID CONTINUATION 1,000 ML IV ONE (07:50)
[2020-09-22] MEDS ORDERED: IOPAMIDOL-250 50ML BTL IV ONE (07:50)
[2020-09-22] MEDS ORDERED: fentaNYL (PF) 50 MCG/ML 2 ML AMP IVP ONE (07:52)
[2020-09-22] MEDS: MIDAZOLAM 2 MG/2 ML VIAL IVP ONE ×2 (07:52→07:55)
[2020-09-22] MEDS ORDERED: LIDOCAINE 1% INJ 10MG/ML (20 ML MDV) SQ ONE ×2 (07:55→08:29)
[2020-09-22] MEDS ORDERED: HYDROcodone/APAP 5-325MG 1 EACH TAB PO PRN (09:39)
--- NOTE | 2020-09-22 09:54 | P.CARDCATH ---
Date of Procedure: 09/22/20 Preoperative Diagnosis: Second degree AV block with bradycardia and fatigue Postoperative Diagnosis: Successful implantation of dual-chamber pacemaker, axillary venography Procedure(s) Performed: Pacemaker implantation Description of Procedure: HISTORY: This is a 65-year-old gentleman with history of hypothyroidism who was found to have evidence of second-degree Mobitz type II block with 2 to one conduction and severe bradycardia associated with fatigue. Patient is advised to have permanent pacemaker implantation. Patient also is advised to have a temporary pacemaker prior to insertion of the permanent pacemaker CONSENT:I have discussed the risks, benefits and alternative therapies for the above-mentioned procedure and for both sedation/analgesia as well as necessary blood product administration, if indicated, as they pertain to this patient. The patient has indicated understanding and acceptance of the risks and procedures discussed. PROCEDURE: TEMPORARY PACEMAKER: The right groin is infiltrated with lidocaine. Right femoral vein was entered using Seldinger technique. A 5-Danish balloontipped permanent pacemaker wire was advanced under fluoroscopy and was placed in the right ventricle apical region. Satisfactory threshold was obtained. The pacemaker was set at a rate of 30 and an output of 3. The pacemaker was removed after the completion of the procedure. Permanent pacemaker: Patient was brought to the lab in a fasting state. Patient was prepped and draped in the usual fashion. Patient was given IV sedation with fentanyl and Versed. The skin below the left clavicle was infiltrated with lidocaine. An incision was made parallel to deltopectoral groove was deepened until the pectoral fascia was exposed. A pocket was created by blunt dissection and cautery. Axillary venography was performed to delineate the course of the axillary vein. 2 sticks were performed into extrathoracic portion of the axillary vein and 2 sheaths were advanced over the guidewires and left in subclavian vein. Conscious Sedation: Versed 2 mg Fentanyl . 50 g Duration 109 minutes LEADS: ATRIAL: This is manufactured by [employer]. Model number is 5076-45. PJN [id number] VENTRICULAR: This is manufactured by [employer]. Model number is 5076-52. The serial number is [id number] The device: The model number is [id number] and the serial number is [id number]. Manufactured by [employer] The ventricular lead is maneuvered l with help of a straight and curved stylets into the left ventricle apical region. Satisfactory position was obtained and threshold measurements were made. The atrial lead was then maneuvered into the right atrial appendage. And thresholds were obtained. THRESHOLDS: ATRIUM: The minimum patient threshold was 1.5 at pulse width of 0.5 with impedance of 1038 P-wave: 4.9 VENTRICLE: . The minimum patient threshold was 1.1 at pulse width of 0.5 impedance of 466 R-wave: 9 The leads and pulse generator remained in the pocket after it was washed with antibiotics. Pocket was closed in the usual fashion. The fascia was closed with 2-0 Prolene ,the subcutaneous tissue was closed with 3-0 Prolene and the skin was closed with 4-0 Prolene. PROGRAMMING: MODE: DDD RATE: 60 to 130 OUTPUT: Atrium : 3.5 V Ventricle: 3.5 V FINAL IMPRESSION: Under 1. Temporary pacemaker implantation. #2. Axillary venography #3. Dual-chamber permanent pacemaker implantation COMPLICATIONS: . None PLAN: Patient will monitored on the telemetry unit. Prophylactic antibiotics to be continued. Chest x-ray in a.m. If stable patient be discharged home in 24 hours
[2020-09-22] MEDS: SODIUM CHLORIDE 0.9% 1,000 ML IV SCH ×4 (11:19→20:18)
[2020-09-22] MEDS ORDERED: IBUPROFEN 200 MG TAB PO PRN (11:22)
[2020-09-22] MEDS: ACETAMINOPHEN TAB 325 MG TAB PO PRN ×2 (14:09→23:06)
[2020-09-22] MEDS ORDERED: MULTIVITAMINS, THERA 1 EACH TAB PO SCH (21:00)
[2020-09-22] MEDS ORDERED: MAGNESIUM OXIDE 400 MG TAB PO SCH (21:00)
[2020-09-22] MEDS ORDERED: NON FORMULARY DRUG (Ubidecarenone [Co Q-10] 100 MG Capsule) PO SCH (21:00)
[2020-09-22] MEDS ORDERED: MELATONIN 3 MG TABLET PO SCH (21:00)
[2020-09-22] MEDS ORDERED: traZODone HCL 50 MG TAB PO SCH (21:00)
[2020-09-22] MEDS ORDERED: PRAVASTATIN SODIUM 80 MG TAB PO SCH (21:00)
--- NOTE | 2020-09-23 06:28 | XR ---
EXAMINATION TYPE: XR chest 2V DATE OF EXAM: 09/23/2020 COMPARISON: Chest x-ray March 24, 2020. HISTORY: Pacemaker insertion. TECHNIQUE: Frontal and lateral views of the chest are obtained. FINDINGS: There is dual-lead pacemaker with leads in right atrium and right ventricle There is mild chronic parenchymal change in the bases without suspicious new focal air space opacity, pleural effus ion, or pneumothorax seen. The cardiac silhouette size is stable and mildly enlarged. The osseous structures remain intact. IMPRESSION: New dual-lead pacemaker with leads terminating in right atrium and right ventricle. No p neumothorax is evident.
[2020-09-23] MEDS ORDERED: LEVOTHYROXINE 88 MCG TAB PO SCH (06:30)
[2020-09-23 08:18] VITALS: BP 151/89; PULSE 70; RESP 16; TEMP 98
--- NOTE | 2020-09-23 10:01 | P.DS ---
Providers Date of admission: 09/21/2020 Attending physician: Mikey Harmon Primary care physician: Stated None - Discharge Diagnosis(es) (1) Second degree AV block Current Visit: Yes Status: Acute (2) History of DVT (deep vein thrombosis) Current Visit: Yes Status: Acute (3) Hypothyroidism Current Visit: Yes Status: Acute Hospital Course: This patient was brought in as an outpatient for permanent pacemaker implantation for second degree AV block and bradycardia associated with symptoms of dizziness and fatigue. Patient had a dual-chamber permanent pacemaker implantation without any complications. Patient also had a temporary pacemaker from the right groin and axillary venography. Patient remained stable overnight. His pacemaker is pacing and sensing well. Threshold measurements today showed excellent profile. Chest x-ray shows proper lead position without any pneumothorax. Lungs are clear. Heart is regular. Patient will continue current medical therapy except holding Xarelto until tomorrow. He'll keep the dressing dry until seen in the office. He is advised to avoid any heavy exertion or lifting the arm above the shoulder level on the left side. He is advised to report this of bleeding and with chest pain or shortness of breath. Follow-up in the office with Dr. Anderson in one week. Patient will also be seen in the clinic Plan - Discharge Summary Discharge Rx Participant: Yes New Discharge Prescriptions: New Cephalexin [Keflex] 500 mg PO Q8HR 1 Days #10 cap Continue Pravastatin Sodium [Pravachol] 80 mg PO HS Multivitamin [Men's Multi-Vitamin] 1 tab PO HS Melatonin(Unknowndose) 3 tab PO HS Magnesium(Unknown Dose) 1 tab PO HS Ubidecarenone [Co Q-10] 100 mg PO HS Levothyroxine Sodium [Synthroid] 88 mcg PO DAILY Ketoprofen 12.5mg 1 cap PO DAILY PRN PRN Reason: Pain traZODone HCL 25 mg PO HS Discontinued Rivaroxaban [Xarelto] 20 mg PO DAILY Discharge Medication List Magnesium(Unknown Dose) 1 tab PO HS 05/09/15 [History] Melatonin(Unknowndose) 3 tab PO HS 05/09/15 [History] Multivitamin [Men's Multi-Vitamin] 1 tab PO HS 05/09/15 [History] Pravastatin Sodium [Pravachol] 80 mg PO HS 05/09/15 [History] Ketoprofen 12.5mg 1 cap PO DAILY PRN 02/05/19 [History] Levothyroxine Sodium [Synthroid] 88 mcg PO DAILY 02/05/19 [History] Ubidecarenone [Co Q-10] 100 mg PO HS 02/05/19 [History] traZODone HCL 25 mg PO HS 09/21/20 [History] Cephalexin [Keflex] 500 mg PO Q8HR 1 Days #10 cap 09/23/20 [Rx] Follow up Appointment(s)/Referral(s): Phoenix Anderson MD [STAFF PHYSICIAN] - 1 Week Activity/Diet/Wound Care/Special Instructions: Patient to hold Xarelto today and tomorrow and resume on day after tomorrow morning, as long as the dressing is dry without any evidence of bleeding Discharge Disposition: HOME SELF-CARE
== END 2020-09-23 10:39 | disposition home or self-care (01) ==
LOC: CATHEP 05:53 → 6NMEDSUR 09:43 → CATHEP 09-23 10:39
PROVIDERS: ATTEND Internal Medicine Cardiovascular Disease
DX: I44.1 Atrioventricular block, second degree (principal); R00.1 Bradycardia, unspecified; E03.9 Hypothyroidism, unspecified; Z86.718 Personal history of other venous thrombosis and embolism; E78.5 Hyperlipidemia, unspecified; I73.9 Peripheral vascular disease, unspecified; Z82.49 Family history of ischemic heart disease and other diseases of the circulatory system; Z87.891 Personal history of nicotine dependence; Z79.01 Long term (current) use of anticoagulants; Z79.890 Hormone replacement therapy; Z79.899 Other long term (current) drug therapy
CPT/HCPCS: 33208; 71046

== ENCOUNTER → 2020-12-27 | Outpatient (CLI) | payer MEDICARE ==
--- NOTE | 2020-12-27 15:36 | US ---
EXAMINATION TYPE: US venous doppler duplex LE LT DATE OF EXAM: 12/27/2020 12:44 PM COMPARISON: ULTRASOUND'S 05/04/2020 CLINICAL HISTORY: I82.5Z9 DVT lower extremity. SIDE PERFORMED: Left TECHNIQUE: The lower extremity deep venous system is examined utilizing real time linear array sonog matthew with graded compression, doppler sonography and color-flow sonography. VESSELS IMAGED: Common Femoral Vein Deep Femoral Vein Greater Saphenous Vein * Femoral Vein Popliteal Vein Small Saphenous Vein * Proximal Calf Veins (* superficial vessels) there are multiple varicosities that are patent and compressible. The short saphenous vein has roulea ux flow that is visible, there is flow and is compressible. Left Leg: Negative for DVT IMPRESSION: 1. No evidence of deep venous thrombosis of the left lower extremity veins. 2. Multiple varicosities of the medial aspect of the left lower extremity are compressible. These are patent. 3. The left short saphenous vein has rouleaux but is compressible.
== END | disposition home or self-care (01) ==
LOC: RADUSWWP 12:20
PROVIDERS: ATTEND Internal Medicine Hematology & Oncology
DX: I82.5Z2 Chronic embolism and thrombosis of unspecified deep veins of left distal lower extremity (principal)

== ENCOUNTER → 2022-03-26 | Day surgery (SDC) | payer MEDICARE ==
[~2022-03-26] MED LIST: LACTATED RINGERS 1,000 ML IV ONE; LACTATED RINGERS 1,000 ML IV SCH; PROPOFOL 10 MG/ML 20 ML VIAL IV ONE
[2022-03-26 11:23] VITALS: TEMP 97.5
--- NOTE | 2022-03-26 11:55 | P.PCN ---
Date of Procedure: 03/26/22 Implants: BRIEF HISTORY: Patient is a 66-year-old pleasant white male scheduled for an elective colonoscopy as a part of screening for colorectal neoplasia. PROCEDURE PERFORMED: Colonoscopy up to hepatic flexure. PREOPERATIVE DIAGNOSIS: Screening for colon cancer. IV sedation per Anesthesia. PROCEDURE: After informed consent was obtained, the patient, was brought into the endoscopy unit. IV sedation was administered by Anesthesia under continuous monitoring. Digital rectal examination was normal. Initially the Olympus CF-160 flexible video colonoscope was then inserted in the rectum, gradually advanced into the hepatic flexure. Despite multiple attempts I was not able to advance the scope beyond the hepatic flexure because of redundant colon. I tried and supine position as well as left lateral position and despite multiple attempts I could not advance the ascending colon. At this time the scope was gradually being withdrawn.. Careful examination was performed as the scope was gradually being withdrawn. Ileocecal valve and the appendiceal orifice were visualized and appeared normal. Prep was excellent. Mucosa of the transverse colon, descending colon, sigmoid colon, and rectum appeared normal. Retroflexion was performed in the rectum and no lesions were seen. The patient tolerated the procedure well. IMPRESSION: Normal-appearing colon from rectum to hepatic flexure with no evidence of colorectal neoplasia . Unable to advance the scope in the right colon RECOMMENDATIONS: Findings of this examination were discussed with the patient as well as his family. He'll be scheduled for double contrast barium enema today to evaluate the right colon.
[2022-03-26 12:02] VITALS: BP 121/78; PULSE 82; RESP 14
--- NOTE | 2022-03-26 16:03 | FL ---
EXAMINATION TYPE: FL barium enema DATE OF EXAM: 03/26/2022 COMPARISON: NONE HISTORY: Incomplete colonoscopy TECHNIQUE: A single contrast barium enema study is performed. A total of 5 minutes 33 seconds of fl uoroscopic time was utilized during procedure and 28 images obtained. 3500 mL of barium. FINDINGS: Coordinator Of Evaluation view of the abdomen shows overall non-obstructive bowel gas pattern. No evidence of any mass or polyp, obstructing or constricting lesion throughout the colon. No signif icant diverticular disease is noted. Appendix was filled and appeared normal. The terminal ileum was refluxed and appears within normal l imits. IMPRESSION: Normal barium enema study.
== END ==
LOC: ORWHC2ENDO 10:07
PROVIDERS: ATTEND Internal Medicine Gastroenterology
DX: Z12.11 Encounter for screening for malignant neoplasm of colon (principal); E78.5 Hyperlipidemia, unspecified; E07.9 Disorder of thyroid, unspecified; Z95.0 Presence of cardiac pacemaker; Z79.899 Other long term (current) drug therapy; Z79.890 Hormone replacement therapy; Z79.82 Long term (current) use of aspirin; Z81.8 Family history of other mental and behavioral disorders; Z83.3 Family history of diabetes mellitus; Z82.49 Family history of ischemic heart disease and other diseases of the circulatory system; Z87.891 Personal history of nicotine dependence
CPT/HCPCS: 74270; J2704; G0121; 45378